=== PATIENT | female | born 1945 | race American Indian/Alaskan Native ===

== ENCOUNTER 2016-12-22 20:12 | Emergency (ER) | payer MEDICARE ==
[2016-12-22] MEDS ORDERED: TYLENOL PO ONE (20:44)
[2016-12-22 21:53] LABS: Bacteria,Urine 1+ /HPF (Negative); Bilirubin,Urine NEG (Negative); Blood,Urine NEG (Negative); Ketones,Urine NEG (Negative); Leukocyte Esterase,Urine SM (Negative); Mucus,Urine 1+ /HPF; Nitrite,Urine NEG (Negative)
[2016-12-22 22:37] LABS: Basophils % (Auto) 0.6 % (0.0-1.8); Eosinophils % (Auto) 0.3 % (0.0-4.3); Hematocrit 39.4 % (30.3-42.9); Hemoglobin 12.6 gm/dl (10.1-14.3); Mean Corpuscular HGB Conc 32 % (30-34); Mean Corpuscular Hemoglobin 29 pg (28-32); Mean Corpuscular Volume 90 fl (79-97); Platelet Count 219 K/mm3 (140-440); Red Blood Count 4.37 M/mm3 (3.65-5.03)
[2016-12-22 22:39] LABS: Alanine Aminotransferase 24 units/L (7-56); Albumin 3.4 g/dL (3.9-5); Albumin/Globulin Ratio 0.7 %; Alkaline Phosphatase 59 units/L (35-129); Anion Gap 17 mmol/L; BUN/Creatinine Ratio 16.66; Bilirubin,Total 0.6 mg/dL (0.1-1.2); Blood Urea Nitrogen 15 mg/dL (7-17); Calcium 8.7 mg/dL (8.4-10.2); Carbon Dioxide 26 mmol/L (22-30); Chloride 97.6 mmol/L (98-107); Glucose 95 mg/dL (65-100); Lipase 26 units/L (13-60); Potassium 4.1 mmol/L (3.6-5.0); Sodium 136 mmol/L (137-145); Total Protein 8.5 g/dL (6.3-8.2)
[2016-12-22 22:46] LABS: INR 0.95 (0.87-1.13)
[2016-12-23] MEDS ORDERED: NACL 0.9% 1000 ML 1,000 ML IV ONE ×2 (03:00→03:02)
[2016-12-23] MEDS ORDERED: TYLENOL PO ONE (03:00)
--- NOTE | 2016-12-23 03:02 | Emergency Department Report ---
ED Syncope HPI - General Chief Complaint: Syncope Stated Complaint: RAPID HEARTBEAT/BACKPAIN Time Seen by Provider: 12/23/16 02:50 - History of Present Illness Initial Comments: This is a pleasant 71-year-old female who indicates she started feeling unwell on Thursday. She states that she felt lightheaded as well as fevers. She is reporting body aches as well. She states this persisted through Thursday and Thursday. She actually had an episode on Thursday when she felt lightheaded and fell to the ground. She did require assistance to get back up. She is mostly been convalescing at home. She denies any cough she denies sore throat. She denies headache. No dysuria is reported. No vomiting or diarrhea is reported. States that she's had decreased oral intake. Lives by herself. Does have family in the area however. Denies any chest pain associated with this. Denies any specific sick contacts - Related Data Allergies/Adverse Reactions: Allergies No Known Allergies Allergy (Unverified 06/11/14 15:47) Home Medications: Ambulatory Orders Sulfamethoxazole/Trimethoprim [Bactrim DS TAB] 1 each PO BID #14 tablet ED Review of Systems ROS: Stated complaint: RAPID HEARTBEAT/BACKPAIN Other details as noted in HPI Comment: All other systems reviewed and negative Constitutional: fever, malaise, weakness. denies: chills Eyes: denies: eye pain, eye discharge, vision change ENT: denies: ear pain, throat pain Respiratory: denies: cough, shortness of breath, wheezing Cardiovascular: denies: chest pain, palpitations Endocrine: no symptoms reported Gastrointestinal: denies: abdominal pain, nausea, diarrhea Genitourinary: denies: urgency, dysuria, discharge Musculoskeletal: myalgia. denies: back pain, joint swelling, arthralgia Skin: denies: rash, lesions Neurological: denies: headache, weakness, paresthesias Psychiatric: denies: anxiety, depression Hematological/Lymphatic: denies: easy bleeding, easy bruising ED Past Medical Hx - Past Medical History Previous Medical History?: No - Surgical History Past Surgical History?: Yes Additional Surgical History: eye, hysterectomy - Social History Smoking Status: Former Smoker Substance Use Type: None - Medications Home Medications: Home Medications Medication Instructions Recorded Confirmed Last Taken Type Sulfamethoxazole/Trimethoprim 1 each PO BID #14 tablet 12/23/16 Unknown Rx [Bactrim DS TAB] ED Physical Exam - General Limitations: No Limitations General appearance: alert, in no apparent distress - Head Head exam: Present: atraumatic, normocephalic - Eye Eye exam: Present: normal appearance, EOMI. Absent: scleral icterus - ENT ENT exam: Present: normal exam, normal orophraynx, mucous membranes moist - Neck Neck exam: Present: normal inspection, full ROM. Absent: tenderness, meningismus, lymphadenopathy - Respiratory Respiratory exam: Present: normal lung sounds bilaterally. Absent: respiratory distress, wheezes, rales - Cardiovascular Cardiovascular Exam: Present: regular rate, normal rhythm. Absent: systolic murmur, diastolic murmur, rubs, gallop - GI/Abdominal GI/Abdominal exam: Present: soft, normal bowel sounds. Absent: tenderness, guarding - Extremities Exam Extremities exam: Present: normal inspection, full ROM. Absent: tenderness, pedal edema, calf tenderness - Back Exam Back exam: Present: normal inspection. Absent: tenderness, CVA tenderness (R), CVA tenderness (L) - Neurological Exam Neurological exam: Present: alert, oriented X3, other (moving all extremities appropriately.) - Psychiatric Psychiatric exam: Present: normal affect, normal mood - Skin Skin exam: Present: warm, dry, intact, normal color. Absent: rash ED Course Vital Signs 12/22/16 12/23/16 12/23/16 20:29 01:58 02:00 Temperature 102.9 F H Pulse Rate 104 H 87 83 Respiratory 20 14 14 Rate Blood Pressure 129/75 128/64 O2 Sat by Pulse 100 99 96 Oximetry 12/23/16 12/23/16 12/23/16 02:30 03:00 03:30 Temperature Pulse Rate 84 85 90 Respiratory 14 14 16 Rate Blood Pressure 127/76 109/73 147/66 O2 Sat by Pulse 99 95 98 Oximetry - Reevaluation(s) Reevaluation #1: 12/23/16 02:52 ECG at 2017 with sinus tachycardia at 104 bpm with a normal NE and QRS. Normal axis as noted unremarkable ECG in general. Reevaluation #2: 12/23/16 05:05 Patient had received Tylenol prior to my evaluation. She subjectively reported feeling much improved with the defervescent's. I did note her labs. Urinalysis does demonstrate 5 WBCs and 1+ bacteria. I doubt this is the etiology of her fever. She is nitrite negative. Urine is sent for culture however. I will treat for this possibility as well. Patient was given Bactrim orally here as well as Bactrim for home. My gestalt is likely viral etiology. Chest x-ray is negative for acute. Labs are noted. Patient subjectively feeling much improved after IV hydration and antipyretics. I have a low threshold for keeping her here but she feels so much more comfortable and feels she'll be safe for home. I did encourage her to have family check on her regularly given that she is living by herself. Blood cultures were obtained as well. 12/23/16 05:09 ED Medical Decision Making - Lab Data Result diagrams: 12/22/16 20:52 12/22/16 20:52 - Radiology Data interpreted by me: no PNA. NO acute Critical care attestation.: If time is entered above; I have spent that time in minutes in the direct care of this critically ill patient, excluding procedure time. ED Disposition Clinical Impression: Myalgia Fever Qualifiers: Fever type: unspecified Qualified Code(s): R50.9 - Fever, unspecified Disposition: DISCHARGED TO HOME OR SELFCARE Is pt being admited?: No Does the pt Need Aspirin: No Condition: Stable Instructions: Viral Syndrome (ED) Additional Instructions: Drink plenty of fluids. Take Tylenol as needed for fever. Have your family follow up and check on your regularly. Return if worsening. Prescriptions: Sulfamethoxazole/Trimethoprim [Bactrim DS TAB] 1 each PO BID #14 tablet Referrals: PRIMARY CARE, [Primary Care Provider] - 3-5 Days Time of Disposition: 04:36
[2016-12-23] MEDS ORDERED: BACTRIM DS PO ONE (05:08)
[2016-12-23 05:10] VITALS: BP 152/75
--- NOTE | 2016-12-23 08:55 | XRay Report ---
AP CHEST: Fever, sepsis. AP view of the chest demonstrates a normal mediastinal and cardiac contour with clear lungs and normal bony and soft tissue structures. No interval change compared to May 2014. IMPRESSION: Normal AP chest.
== END 2016-12-23 05:19 | disposition home or self-care (01) ==
LOC: ED 20:12
DX: M79.1 Myalgia (principal); R50.9 Fever, unspecified; Z90.710 Acquired absence of both cervix and uterus
CPT/HCPCS: 36415; 71010; 80053; 81001; 82140; 82805; 83690; 85025; 85610; 87040; 87086; 87400; 93005; 93010; 96360; 99285; J7030